=== PATIENT | male | born 1990 | race Caucasian/White ===

== ENCOUNTER 2019-05-27 14:41 | Emergency (ER) | payer OTHER, SELFPAY ==
[2019-05-27 15:14] VITALS: BP 131/88; PULSE 87; RESP 20; TEMP 37.6; O2SAT 98
--- NOTE | 2019-05-27 15:59 | ED.URI ---
HPI - URI/Sore Throat General Chief Complaint: Upper Respiratory Infection Stated Complaint: aches headache cough sore throat Time Seen by Provider: 05/27/19 15:53 Source: patient and RN notes reviewed Mode of arrival: ambulatory Limitations: no limitations History of Present Illness HPI Narrative: Patient presents today with a 2-day history of cough, sore throat, nasal congestion, body aches, fever, and intermittent shortness of breath. He has been taking Robitussin without much relief. No history of asthma. He does smoke cigarettes. Reports multiple sick contacts at home. MD elicited complaint: fever, cough and sore throat Related Data Home Medications Medication Instructions Recorded Confirmed No Home Medications 05/27/19 05/27/19 Allergies Allergy/AdvReac Type Severity Reaction Status Date / Time No Known Allergies Allergy Verified 05/27/19 15:32 Review of Systems Review of Systems: Narrative: CONSTITUTIONAL: Denies chills, or sweats.+Fever, body aches, Fatigue EYES: Denies visual changes, redness, or discharge. ENT: Denies rhinorrhea, or otalgia.+Ingestion, sore throat CARDIOVASCULAR: Denies chest pain, palpitations, or edema. RESPIRATORY: +Cough, shortness of breath GASTROINTESTINAL: Denies abdominal pain, nausea, vomiting, or diarrhea. GENITOURINARY: Denies dysuria or hematuria. SKIN: Denies rash, itching, or wounds. MUSCULOSKELETAL: Denies back pain, joint pain, or myalgia. NEUROLOGIC: Denies headache, numbness, tingling, or weakness. PSYCH: Denies depression or anxiety. [facility] Social History Social History (Updated 05/27/19 @ 16:00 by Paula Bishop, [facility], ) Smoking status: Current every day smoker Comments At time of signature, I have reviewed and agree with nursing past medical, surgical, social and family history unless otherwise noted. Please see nursing chart for further information. There is no relevant family history pertinent to the presenting complaint Exam Narrative: Exam Narrative: GENERAL: Ill-appearing, well-nourished, and in no acute distress. HEAD: Normocephalic, atraumatic. EYES: EOMI. No redness or drainage. Conjunctivae normal. ENT: Mucous membranes pink and moist. Nares congested. No rhinorrhea. TMs normal bilaterally. Throat normal. Uvula midline. NECK: Normal AROM. Supple. No lymphadenopathy. CHEST: No respiratory distress. Clear to auscultation. HEART: Regular rate and rhythm. No murmur appreciated. Normal peripheral pulses. EXTREMITIES: Normal range of motion. No edema. SKIN: Warm, dry, no rash. NEURO: No focal deficits. Alert and oriented x3. Gait steady. PSYCH: Normal affect. No signs of depression or anxiety. Course Course Emergency Course: Patient declines flu swab. Vital Signs Vital signs: Vital Signs Temperature 99.7 F H 05/27/19 15:14 Pulse Rate 87 05/27/19 15:14 Respiratory Rate 20 05/27/19 15:14 Blood Pressure 131/88 05/27/19 15:14 Pulse Oximetry 98 05/27/19 15:14 Temperature 99.7 F H 05/27/19 15:14 Pulse Rate 87 05/27/19 15:14 Respiratory Rate 05/27/19 15:14 Blood Pressure 131/88 05/27/19 15:14 Pulse Oximetry 98 05/27/19 15:14 Reviewed. Pt has been instructed to follow up with his PCP regarding his elevated blood pressure today. MDM - URI/Sore Throat Differential Diagnosis Differential diagnosis: Likely upper respiratory infection, otitis media, sinusitis, viral infection, bronchitis, influenza and pharyngitis Critical Care Time Critical Care Time Critical Care Time: No Discharge Plan Discharge Clinical Impression: Upper respiratory infection Qualifiers: URI type: unspecified URI Qualified Code(s): J06.9 - Acute upper respiratory infection, unspecified Patient Disposition: Home, Self-Care Condition: Stable Instructions: Upper Respiratory Infection (DC) Additional Instructions: Your symptoms are likely due to a viral illness, which is not treated with antibiotics. Virus symptoms
== END 2019-05-27 16:05 | disposition home or self-care (01) ==
PROVIDERS: Emergency Provider Nurse Practitioner
DX: J06.9 Acute upper respiratory infection, unspecified (principal); F17.200 Nicotine dependence, unspecified, uncomplicated
CPT/HCPCS: 99211; G0463

== ENCOUNTER 2019-09-08 07:36 | Outpatient (CLI) | payer OTHER, SELFPAY ==
--- NOTE | ~2019-09-08 | US_ITS ---
US scrotum doppler INDICATION: Bilateral testicle pain TECHNIQUE: Testicular sonogram utilizing grayscale and color Doppler FINDINGS: The testes are normal in size and appearance. No focal lesions are seen. The right testes measures 4.1 x 2.8 x 2.1 centimeters, and the left testis measures 3.7 x 2.4 x 2.1 cm cm. There is no rmal vascular flow to both testes. 2 mm left epididymal cysts. Small bilateral hydroceles. IMPRESSION: 1. Small bilateral hydroceles. Reviewed, dictated and finalized at location A.
== END 2019-09-08 07:37 | disposition home or self-care (01) ==
PROVIDERS: Visit Provider Emergency Medicine
DX: N50.812 Left testicular pain (principal); N50.811 Right testicular pain; N43.3 Hydrocele, unspecified
CPT/HCPCS: 76870; 93976

== ENCOUNTER 2021-12-08 01:51 | Day surgery (SDC) | payer OTHER, SELFPAY ==
--- NOTE | 2021-12-01 13:24 | PC.NURSE ---
Report to the Outpatient Waiting Room, entrance under the green pavilion located off [facility], at time 1330 __ on date 12/08/21_. OR Time: _1530 _. - You and your visitor will be asked to self-screen and do not enter if you have any COVID symptoms. - Only one visitor and NO children visitors are allowed at this time. - The patient visitor is requested to leave or wait in car when not with patient due to restrictions. - A mask is required within the hospital. Patients may have clear liquids (water, carbonated beverages, clear teas, apple juice) until 3 hours prior to surgery with a maximum of 20 ounces. - No food from midnight until time of surgery - Infants may have breast milk until 4 hours before surgery, formula 6 hours prior to surgery. - Children will be allowed to drink immediately following surgery. If applicable, please bring a bottle or sippy cup to assist with drinking. Juice, water, soda, and popsicles are readily available. For infants on formula, please bring formula the day of surgery. Pacifiers are allowed. Take the following medications with a SIP of water the morning of surgery: NONE__ Medications to discontinue per physician NONE Date to take last dose Please no make-up, nail north k[place], hairspray, perfume, deodorant, or body powder the day of surgery. No jewelry (including any body piercings) or valuables the day of surgery, leave them at home. Please take a shower or bath the night before, or the morning of, surgery with an antibacterial soap. Wear comfortable, loose fitting clothing. Children are encouraged to wear pajamas. - Jewelry must be removed prior to entering the operating room. Rings and piercings that are not removed may be cut off. - The hospital will not accept responsibility for valuables. - Please leave all valuables, including medications, at home the day of surgery. If you are going home after surgery, a licensed van cdl driver must drive you home. - NO public transportation without another adult. - We recommend that an adult stay with you for 24 hours following discharge. - We also recommend that you do not drive, make important decision, drink alcoholic beverages, or take any drugs that were not prescribed by your health care provider for at least 24 hours after your discharge time. For Pediatric surgeries, we recommend two adults accompany the child home (only one inside the building at this time). Follow any additional instructions given to you from your surgeon. If you or anyone in your household have experienced Covid symptoms in the past week, please notify your surgeon or the nurse liaison at the phone number below for possible testing. Telephone instructions given to __PATIENT__and asked if any additional questions and then verbalized understanding. Patient advised to call surgeon office or pre surgery nurse liaison [phone] if any additional questions.
--- NOTE | 2021-12-08 14:18 | P.PNAN_ITS ---
Anes - Initial Pre Proc Eval Procedure: Operation Date: 12/08/21 15:30 Proposed Procedures p Bilateral Vasectomy - Evan Bright MD Date/Time: 12/08/21 14:18 Surgeon: Evan Bright MD Pre Op Diagnosis: Male Sterilization Patient Data Age: 31 Gender: M Height: 1.78 m Weight: 95 kg Allergies Allergy/AdvReac Type Severity Reaction Status Date / Time No Known Allergies Allergy Verified 12/01/21 13:19 Home Medications Medication Instructions Recorded Confirmed Type No Home Medications 05/27/19 12/01/21 History Patient hx anesthesia problems: none Family hx anesthesia problems: none Results Review: All pre-operative results and documents have been reviewed as part of the pre- operative evaluation. [facility] Past Medical History Medical History (Updated 12/08/21 @ 14:20 by Matt Flor MD) Obesity Social History Social History (Updated 05/27/19 @ 16:00 by Paula Bishop, [facility], ) Smoking packs per day: 0.5 Smoking cigarettes per day: 10.0 Years smoked: 4 Smoking pack-years: 2.00 Smoking status: Former smoker Alcohol intake: current Drinks per week: 4 Living arrangements: with family Anes - Eval Final PreProcedure Day of Procedure 12/08/21 14:18 Patient weight: obese Heart: regular rate and rhythm Lungs: clear to auscultation and normal air movement Airway: Mallampati scale class II Neurological: alert and oriented Last oral intake: >/= 8 hours ASA classification: II Emergent: no Anesthetic plan: proceed Anesthesia type and monitoring: general GIVS Results Review: All pre-operative results and documents have been reviewed as part of the pre- operative evaluation. Informed Consent: The patient's anesthetic plan and its attendant risks and benefits were discussed with the patient/family/POA. Questions were solicited and answers provided to the satisfaction of the patient/family/POA.
[2021-12-08 14:23] VITALS: BP 138/79; PULSE 64; RESP 14; TEMP 37.3; O2SAT 100
[2021-12-08] MEDS: LACTATED RINGERS 1,000 ML 30 ML IV CONT (14:31)
[2021-12-08] MEDS: ACETAMINOPHEN 500 MG TABLET 1000 MG PO (14:39)
--- NOTE | 2021-12-08 16:00 | WPDHPUPDATE1 ---
History and Physical Update Update Date/Time: 12/08/21 16:00 History and Physical has been reviewed, including an updated exam of the patient. There are NO changes in the patient's condition. Risks, benefits, and alternatives have been discussed and questions answered. Patient agrees to proceed with procedure.
--- NOTE | 2021-12-08 16:00 | PM.IMHP ---
H&P: HPI History of Present Illness Date/Time: 12/08/21 16:00 Chief Complaint: Desire for sterility [facility] Past Medical History Medical History (Updated 12/08/21 @ 14:20 by Matt Flor MD) Family planning Obesity Social History Social History (Updated 05/27/19 @ 16:00 by Paula Bishop, [facility], ) Smoking packs per day: 0.5 Smoking cigarettes per day: 10.0 Years smoked: 4 Smoking pack-years: 2.00 Smoking status: Former smoker Alcohol intake: current Drinks per week: 4 Living arrangements: with family Meds Home Medications and Allergies Home Medications Medication Instructions Recorded Confirmed Type No Home Medications 05/27/19 12/01/21 History Allergies Allergy/AdvReac Type Severity Reaction Status Date / Time No Known Allergies Allergy Verified 12/08/21 14:28 Vital Signs Vital Signs - 24 hr 12/08/21 14:23 Temperature 37.3 C Pulse Rate 64 Respiratory Rate 14 Blood Pressure 138/79 Pulse Oximetry 100 Oxygen Delivery Room Air Exam Narrative: Patient is awake alert. No acute distress. Breathing is unlabored. Abdomen soft nontender nondistended Assessment and Plan Assessment and plan (1) Family planning: Code(s): Z30.09 - Encounter for other general counseling and advice on contraception Status: Acute Plan Plan bilateral vasectomy. The risks benefits alternatives discussed patient. He agrees to proceed with procedure today.
[2021-12-08] MEDS: ceFAZolin 2 GM/D5W 50 ML 2 GM/50 ML BAG IVPB (17:19)
--- NOTE | 2021-12-08 17:45 | P.OP_ITS ---
Procedure Note - Detailed Date of Procedure 12/08/21 Pre-op Diagnosis Male Sterilization Post-op Diagnosis Same Procedure Performed Bilateral vasectomy Surgeon Evan Bright MD Anesthesia MAC Description of Procedure Informed consent is obtained. Patient taken operating. He was given MAC anesthesia. He was prepped and draped in normal sterile fashion. The right vas deferens was infiltrated with lidocaine we use non scalpel technique in order to spread the skin over the vas. The vas deferens was away from surrounding structures and a 2cm portion was excised and ends cauterized. We placed a tie-over each end and then performed fascial interposition with 3-0 chromic suture. An identical procedure was performed the contralateral side. The midline opening was small and therefore skin suture was not placed. Neosporin and a Band-Aid were placed. patient was then awakened and taken to re covery room stable condition Complications No immediate complications Condition Stable Disposition PACU
[2021-12-08 17:49] VITALS: BP 141/76; PULSE 71; RESP 18; O2SAT 99
[2021-12-08 18:05] VITALS: BP 133/67; PULSE 62; RESP 18
[2021-12-08 18:30] VITALS: BP 138/81; PULSE 67; RESP 18
== END 2021-12-08 18:40 | disposition home or self-care (01) ==
PROVIDERS: PCP Hospitalist; Visit Provider Urology
PROC: (CPT 55250; principal; 2021-12-08 15:30)
DX: Z30.2 Encounter for sterilization (principal); Z87.891 Personal history of nicotine dependence; E66.9 Obesity, unspecified; Z68.30 Body mass index [BMI] 30.0-30.9, adult
CPT/HCPCS: 55250; 88300; A9270; J0690; J2250; J2270; J2405; J2704; J7120

== ENCOUNTER 2024-03-15 15:41 | Emergency (ER) | payer OTHER, SELFPAY ==
[2024-03-15 15:53] VITALS: BP 160/79; PULSE 82; RESP 20; TEMP 36.6; O2SAT 100
[2024-03-15 15:54] VITALS: BP 160/79; PULSE 82; RESP 20; TEMP 36.6; O2SAT 100
--- NOTE | 2024-03-15 15:58 | ED_ITS ---
HPI - URI/Sore Throat General Chief Complaint: Upper Respiratory Infection Stated Complaint: aches/cough/congestion Time Seen by Provider: 03/15/24 16:05 Source: patient and RN notes reviewed Mode of arrival: ambulatory Limitations: no limitations History of Present Illness HPI Narrative: 33-year-old male presents with concern for 5 day history of cough, chest congestion, nasal congestion, rhinorrhea. He reports he has been taking Mucinex. He denies sore throat. Denies fever. MD elicited complaint: cough and nasal congestion Related Data Allergies Allergy/AdvReac Type Severity Reaction Status Date / Time No Known Allergies Allergy Verified 12/08/21 14:28 Review of Systems Review of Systems: CONSTITUTIONAL: Denies malaise, chills, sweats, or fever. EYES: Denies visual changes, redness, or discharge. ENT: Reports rhinorrhea, congestion urgent sinus pain, otalgia and sore throat. CARDIOVASCULAR: Denies chest pain, palpitations, or edema. RESPIRATORY: Reports cough. Denies dyspnea. GASTROINTESTINAL: Denies abdominal pain, nausea, vomiting, diarrhea SKIN: Denies rash or itching. MUSCULOSKELETAL: Denies myalgia. NEUROLOGIC: Denies headache. All systems reviewed & are unremarkable except as noted in HPI and below PMFSH Past Medical History Medical History (Updated 03/15/24 @ 16:11 by Trudi Bush NP) Family planning Obesity Social History Social History (Updated 05/27/19 @ 16:00 by Paula Bishop, [facility], ) Smoking packs per day: 0.5 Smoking cigarettes per day: 10.0 Years smoked: 4 Smoking pack-years: 2.00 Smoking status: Former smoker Alcohol intake: current Drinks per week: 4 Living arrangements: with family Comments At time of signature, agree with nursing past medical, surgical, social and family history. There is no relevant family history pertinent to the presenting complaint Exam Narrative: GENERAL: Well-appearing, well-nourished, and in no acute distress. HEAD: Normocephalic EYES: PERRLA, conjunctivae clear ENT: Nares clear. Mucous membranes moist. TM pearly le with dull light reflex bilaterally; no tragal tenderness. Oropharynx not erythematous without lesions. Tonsils not enlarged and without exudate, no drooling, no hoarseness, no trismus, uvula midline. NECK: Supple. No lymphadenopathy CHEST: Clear to auscultation, breath sounds equal. No wheezing, rhonchi, rales, or stridor. No respiratory distress, speaks in full sentences. HEART: Regular rate and rhythm. No murmur heard. SKIN: Warm, dry, no rash. NEURO: Alert and oriented x3. PSYCH: Normal mood and affect Course Course Emergency Course: Patient is aware of diagnosis, understands and agrees to treatment plan. Anticipatory guidance given. Patient agrees to follow-up as directed and is aware of reasons to seek care at the emergency department. Portions of this record may have been created with voice recognition software Level of Care: Express Care Visit Vital Signs Vital signs: Vital Signs Temperature 97.9 F 03/15/24 15:53 Pulse Rate 82 03/15/24 15:53 Respiratory Rate 20 03/15/24 15:53 Blood Pressure 160/79 H 03/15/24 15:53 Pulse Oximetry 100 03/15/24 15:53 Oxygen Delivery Room Air 03/15/24 15:53 Temperature 97.9 F 03/15/24 15:54 Pulse Rate 82 03/15/24 15:54 Respiratory Rate 20 03/15/24 15:54 Blood Pressure 160/79 H 03/15/24 15:54 Pulse Oximetry 100 03/15/24 15:54 Oxygen Delivery Room Air 03/15/24 15:54 Reviewed. MDM - URI/Sore Throat MDM Narrative Medical decision making narrative: Differential diagnosis considered: Heath virus, strep pharyngitis, allergic rhinitis, upper respiratory tract infection, sinusitis, rhinosinusitis, nasopharyngitis. viral pharyngitis, otitis media, otitis externa, pneumonia, bronchitis, viral cough syndrome, viral syndrome, and influenza. Exam findings show no acute concerns or changes; patient is non-toxic appearing and is in no distress. Patient is appropriate for outpatient treatment and follow-up. Lab Data Attestation: I reviewed the patient's lab results. Critical Care Time Critical Care Time Critical Care Time: No Discharge Plan Discharge Clinical Impression: Upper respiratory infection Patient Disposition: Home, Self-Care Condition: Stable Instructions: Upper Respiratory Infection (ED) Additional Instructions: Your rapid COVID and flu tests are negative Viral illness may last between 7-21 days; antibiotics do not cure viral illness and are NOT recommended at this time. Recommend antihistamine such as Benadryl at night time and Zyrtec or Krista during the day Also, recommend symptomatic treatment includes: rest, fluids, and increase humidity of the air at home. Recommend Acetaminophen as directed on the bottle to reduce fever, pain, headache. Avoid smoking/second-hand smoke. Please schedule a follow-up visit with your personal physician for further evaluation and treatment within 3-5days. Including recheck and discussion of your blood pressure. If your symptoms persist, change or worsen significantly before you can contact your personal physician then please, without delay, go to the emergency department for further evaluation. Prescriptions: New dextromethorphan-guaifenesin [Mucinex DM] 60-1,200 mg tablet extended release 12 hr 1 tablet PO Q12H Qty: 12 0RF pseudoephedrine HCl [12 Hour Decongestant] 120 mg tablet extended release 120 mg PO Q12H PRN (Reason: nasal congestion) Qty: 20 0RF Follow-up/Referrals: Lorraine,MD Ron [Primary Care Provider] - Time of Disposition: 16:12
[2024-03-15 16:10] LABS: EDCOVIDSCREEN Negative (Negative); EDINFLUASCREEN Negative (Negative); EDINFLUBSCREEN Negative (Negative)
== END 2024-03-15 16:16 | disposition home or self-care (01) ==
PROVIDERS: Emergency Provider Nurse Practitioner; PCP Hospitalist
DX: J06.9 Acute upper respiratory infection, unspecified (principal); Z87.891 Personal history of nicotine dependence; Z20.822 Contact with and (suspected) exposure to COVID-19
CPT/HCPCS: 87426; 87804; 99213; G0463